=== PATIENT | male | born 1955 | race Caucasian/White ===

== ENCOUNTER 2016-06-09 12:30 | Day surgery (SDC) | payer OTHER ==
[~2016-06-09] VITALS: Ht 177.8 cm; Wt 92.0 kg
[~2016-06-09 12:30] MED LIST: 0.9% Sodium Chloride 1,000 ML IV SCH; AZU500 PO; Lactated Ringer's 1,000 ML IV ONE; Sodium Chloride LOK Flush 10 mL Syringe IV PRN; TAMS0.4C98 PO; fentaNYL-PF 50 mCg/mL 2 mL Inj IVPUSH PRN
[2016-06-09 13:21] VITALS: BP 147/91; PULSE 81; RESP 16; O2SAT 94
[2016-06-09 14:44] VITALS: BP 150/95; PULSE 79; RESP 14; O2SAT 95
--- NOTE | 2016-06-09 14:47 | PCM.ENDCOL ---
Colonoscopy Date of Service: June 09, 2016 Physician Troy Orr MD Pre Procedure Diagnosis: Ulcerative colitis and screening Post Procedure Dx & Findings: UC activity polyp diverticuli hemorrhoids Procedure Colonoscopy PROCEDURE IN DETAIL: Prep adequate Withdrawal time 21 minutes After unremarkable rectal examination the Olympus video colonoscope was inserted patient's anal canal and was advanced to cecum. Landmarks were identified including the ileocecal valve and appendiceal orifice. Scope further events the terminal ileum. We advanced 10 cm. Normal villous structures without any ulcer or mass erosion noted. Scope was withdrawn systematically. Visualized colonic mucosa showed healthy shiny mucosa with normal healthy-appearing vasculature. Patient had normal-appearing healthy colonic mucosa from cecum to 40 cm from the anal verge. Random biopsies were obtained using protocol. Four-quadrant biopsies obtained from the cecum to the left colon every 10 cm. From the left colon to 40 cm, random biopsies obtained 4 quadrants every 5 cm. From 40 cm, there was evidence of disease activity with redness edema decrease in vasculature. The biopsies obtained. Diverticuli noted in the sigmoid colon few. In the cecum, there was a 1 cm polyp which was removed completely using hot snare. The surrounding mucosa was biopsied at random to make sure this is not a DALMl lesion. Rounding biopsy was taken and placed in another bottle. In the rectum retroflexion was done which showed hemorrhoids. Anal canal was inspected carefully on the way out and hemorrhoids noted. Impression Cecal polyp status post complete removal place in 1 bottle and random biopsies surrounding thist place another bottle UC activity from 40 cm from the anal verge. Biopsies obtained. Screening colonoscopy biopsy obtained for ulcerative Colitis described above. Sigmoid diverticuli Hemorrhoids Recommendation Repeat colonoscopy in 1 year Flexible sigmoidoscope in 3 months after treatment for the colitis. We will obtain 4 quadrant biopsies every 5 cm into the rectum after colitis treatment. Diverticular diet Follow-up GI clinic 1 month Presedation Assessment Risks and Benefits Informed consent was obtained from the patient after all risks and benefits including but not limited to drug reaction, infection, pain, bleeding, perforation, as well as alternatives were discussed. Patient monitoring Continuous pulse oximetry, cardiac monitoring, blood pressure monitoring, IV access, and oxygen at 2L per nasal cannula. Periprocedural Fentanyl: Fentanyl 100mcg Incrementally Midazolam: Midazolam 5mg Incrementally Complications There were no periprocedural complications identified. Post Procedure Plan Post Procedure Recommendations 1. Restrict activities today. 2. Resume normal activities in the morning. 3. Resume medications. 4. Patient informed of normal post procedure side effects as bloating, drowsiness, blood streaking in the stool. 5. average risk CRCS. If colon polyps come back as: -Hyperplastic- can repeat colonoscopy in 10 years -Tubular adenoma- repeat colonoscopy in 5 years -Tubulovillous/villous adenoma- repeat colonoscopy in 3 years -If any dysplasia- return to clinic as soon as possible 6. Please don't hesitate to call me with any questions. Troy Orr MD June 09, 2016 14:47
[2016-06-09 14:54] VITALS: BP 150/95; PULSE 77; RESP 14; O2SAT 95
[2016-06-09 14:56] VITALS: BP 149/91; PULSE 79; RESP 12; O2SAT 95
--- NOTE | 2016-06-12 17:37 | PATH ---
SURGICAL PATHOLOGY Attending Physician:Troy Orr M.D. CASE STATUS: Signed Out PATIENT NAME: SELENA COULTER PID: [id number] : 1955 DATE COLLECTED:06/09/2016 00:00 SPECIMEN: 1: Colon, Biopsy 2: Colon, Biopsy 3: Colon, Biopsy 4: Colon, Biopsy CLINICAL HISTORY: 1. CECAL POLYP 2. CECAL TISSUE BIOPSY NEAR POLYPECTOMY 3. SIGMOID BIOPSY 4. SIGMOID BIOPSY / @ 40CM (INFLAMMATION SEEN) FINAL DIAGNOSIS: 1. Cecum, Polyp, Biopsy: Portions of tubular adenoma; negative for high-grade dysplasia. 2. Cecal Tissue Biopsy Near Polypectomy: Superficial portions of colorectal mucosa x2 with melanosis coli and no significant histomorphologic abnormality. 3. Sigmoid Biopsy: Superficial portions of colorectal mucosa with scattered, prominent lymphoid aggregates, melanosis coli, and otherwise no significant histomorphologic abnormality. 4. Sigmoid Biopsy At 40 cm: Focal active inflammation. Please see comment. ICD10: K63.5 NOTE: Part 4. Sections demonstrate superficial portions of colorectal mucosa with occasional, patchy regions of active inflammation, including regions of cryptitis. Patchy, mild to moderate crypt architectural distortion is present. There are no definite granulomas identified. There is no evidence of dysplasia or malignancy. The differential diagnosis includes an acute self-limited bacterial colitis, NSAID use, the effect of sodium phosphate bowel preparation solutions, and idiopathic inflammatory bowel disease, in the appropriate clinical setting. GROSS DESCRIPTION: The specimen is received in four formalin filled containers labeled with the patient's name. 1). The specimen is sublabeled "cecal polyp" and consists of 3 pieces of tissue which aggregate to 0.7 x 0.6 x 0.6 CM. The specimen is entirely submitted in cassette 1A. 2). The specimen is sublabeled "cecal tissue biopsy near polypectomy" and consists of 2 tiny portions of tissue which aggregate to 0.2 x 0.2 x 0.2 CM. The specimen is entirely submitted in cassette 2A. 3). The specimen is sublabeled "sigmoid" and consists of multiple portions of tissue which aggregate to 0.8 x 0.7 x 0.3 CM. The specimen is entirely submitted in cassette 3A. 4). The specimen is sublabeled "sigmoid biopsy at 40 CM" and consists of multiple portions of tissue which aggregate to 0.4 x 0.4 x 0.2 CM. The specimen is entirely submitted in cassette 4A. 06/10/2016 [facility] ICD-9 CODES: CPT CODES: 1: 84955 2: 31593 3: 77867 4: 78267 Electronically Signed Out Amina Veras MD [facility] [address], [place] [address] Technical component performed at [facility], [address], [place], [address]
== END 2016-06-09 23:59 | disposition home or self-care (01) ==
LOC: END 12:30
PROVIDERS: ATTEND Internal Medicine
DX: D12.0 Benign neoplasm of cecum (principal); K51.90 Ulcerative colitis, unspecified, without complications; K52.9 Noninfective gastroenteritis and colitis, unspecified; K57.30 Diverticulosis of large intestine without perforation or abscess without bleeding; K64.8 Other hemorrhoids; Z79.899 Other long term (current) drug therapy